=== PATIENT | male | born 1950 | race Caucasian/White ===

== ENCOUNTER → 2022-06-14 | Outpatient (CLI) | payer OTHER ==
[~2022-06-14] MED LIST: MEDROL DOSEPAK 24 MG PO; PROAIR DIGIHAL90 MCG INH
== END ==
LOC: ECHO 12:30
DX: I50.9 Heart failure, unspecified (principal); I08.0 Rheumatic disorders of both mitral and aortic valves
CPT/HCPCS: ECHO; 93306